=== PATIENT | female | born 1970 | race African-American/Black ===

== ENCOUNTER 2017-10-15 18:20 | Emergency (ER) | payer MEDICAID ==
[~2017-10-15] VITALS: Ht 172.7 cm; Wt 90.0 kg
[2017-10-15] MEDS ORDERED: SODIUM CHLORIDE 0.9% 1,000 ML IV ONE (18:56)
[2017-10-15 19:52] LABS: BASOPHILS % 1.1 % (0.0-2.0); EOSINOPHILS % 3.8 % (0.0-5.0); HEMATOCRIT. 32.1 % (36.0-48.0); HEMOGLOBIN. 11.1 g/dL (12.0-16.0); LYMPHOCYTES % 47.1 % (20.0-50.0); MEAN CORPUSCULAR HEMOGLOBIN 28.5 pg (28.0-32.0); MEAN CORPUSCULAR VOLUME 82.5 fL (81.0-99.0); MEAN PLATELET VOLUME 9.5 fl (7.4-10.4); MONOCYTES % 7.4 % (2.0-8.0); NEUTROPHILS % 40.6 % (40.0-76.0); PLATELET 243 x1000/uL (130-400); RED BLOOD CELL COUNT 3.89 mill/uL (4.2-5.4); RED CELL DISTRIBUTION WIDTH 14.3 % (11.6-14.6)
[2017-10-15 20:00] LABS: CHLORIDE 107 mEq/L (98-107)
[2017-10-15 20:06] LABS: PROTHROMBIN TIME 10.9 sec (9.4-11.6)
[2017-10-15 20:08] LABS: HCG SCREEN NEGATIVE
[2017-10-15 22:23] LABS: B-HCG QUANTITATIVE < 1 mIU/mL (<3)
[2017-10-15 23:28] LABS: CLARITY URINE CLOUDY (CLEAR); COLOR URINE YELLOW (YELLOW); KETONES URINE NEGATIVE (NEGATIVE); LEUKOCYTE ESTERASE URINE TRACE (NEGATIVE); NITRITE URINE NEGATIVE (NEGATIVE); OCCULT BLOOD URINE 3+ (NEGATIVE); PROTEIN URINE TRACE (NEGATIVE); SPECIFIC GRAVITY URINE 1.026 (1.005-1.030)
[2017-10-16 05:05] VITALS: BP 135/67
== END 2017-10-16 05:50 | disposition home or self-care (01) ==
LOC: ER 18:59
DX: N93.9 Abnormal uterine and vaginal bleeding, unspecified (principal); N83.201 Unspecified ovarian cyst, right side; N83.202 Unspecified ovarian cyst, left side; Z98.51 Tubal ligation status
CPT/HCPCS: 36415; 76830; 76856; 80053; 81003; 84702; 84703; 85025; 85610; 86850; 86900; 86901; 99285; J7030; Z7610